=== PATIENT | male | born 1950 | race African-American/Black ===

== ENCOUNTER 2017-12-23 09:47 | Outpatient (CLI) | payer MEDICARE, MEDICAID ==
[2017-12-23 10:42] LABS: #Basophils 0.1 thou/uL (0.0-0.2); #Eosinphils 0.2 thou/uL (0.0-0.7); #Lymphocytes 1.5 thou/uL (1.20-3.40); #Monocytes 0.9 thou/uL (0.11-0.59); #Neutrophils 6.3 thou/uL (1.40-6.50); %Basophils 0.8 % (0.0-1.0); %Eosinophils 1.9 % (0.0-10.0); %Lymphocytes 16.5 % (21.0-51.0); %Monocytes 9.6 % (0.0-10.0); %Neutrophils 71.2 % (42.0-75.0); Hemoglobin 9.2 g/dL (14.0-18.0); Mean Corpuscular HGB CONC 31.1 g/dL (32.0-36.0); Mean Corpuscular Volume 86.9 fL (78.0-98.0); Mean Platelet Volume 6.2 fL (7.4-10.4); Platelet Count 348 thou/uL (130-400); RBC Distribution Width 18.1 % (11.5-14.5); Red Blood Cell (RBC) Count 3.39 mill/uL (4.70-6.10); White Blood Cell (WBC) Count 8.8 thou/uL (4.8-10.8)
[2017-12-23 10:48] LABS: INR-International Normal Ratio 1.1; Prothrombin Time 13.8 SEC (12.0-14.7)
== END 2017-12-23 09:48 | disposition home or self-care (01) ==
LOC: MADLABBHPM 09:47
PROVIDERS: ATTEND Family Medicine
DX: I48.91 Unspecified atrial fibrillation (principal)
CPT/HCPCS: 36415; 85025; 85610

== ENCOUNTER 2018-01-06 09:10 | Outpatient (CLI) | payer MEDICARE, MEDICAID ==
[2018-01-06 10:36] LABS: INR-International Normal Ratio 1.1; Prothrombin Time 14.3 SEC (12.0-14.7)
[2018-01-06 11:13] LABS: #Basophils 0.1 thou/uL (0.0-0.2); #Eosinphils 0.2 thou/uL (0.0-0.7); #Lymphocytes 1.7 thou/uL (1.20-3.40); #Monocytes 0.7 thou/uL (0.11-0.59); #Neutrophils 3.8 thou/uL (1.40-6.50); %Basophils 1.2 % (0.0-1.0); %Eosinophils 3.3 % (0.0-10.0); %Lymphocytes 25.9 % (21.0-51.0); %Monocytes 10.7 % (0.0-10.0); %Neutrophils 58.9 % (42.0-75.0); Hemoglobin 10.7 g/dL (14.0-18.0); Mean Corpuscular Hemoglobin 28.7 pg (27.0-31.0); Mean Corpuscular Volume 89.6 fL (78.0-98.0); Mean Platelet Volume 7.6 fL (7.4-10.4); Nucleated RBC 0 % (0); Platelet Count 251 thou/uL (130-400); RBC Distribution Width 18.4 % (11.5-14.5); Red Blood Cell (RBC) Count 3.73 mill/uL (4.70-6.10); White Blood Cell (WBC) Count 6.5 thou/uL (4.8-10.8)
== END 2018-01-06 09:11 | disposition home or self-care (01) ==
LOC: MADLABBHPM 09:10
PROVIDERS: ATTEND Family Medicine
DX: I48.91 Unspecified atrial fibrillation (principal); Z79.01 Long term (current) use of anticoagulants
CPT/HCPCS: 85025; 85610

== ENCOUNTER 2018-02-14 04:27 | Emergency (ER) | payer MEDICARE, MEDICAID ==
[2018-02-14 04:58] LABS: #Basophils 0.1 thou/uL (0.0-0.2); #Eosinphils 0.2 thou/uL (0.0-0.7); #Lymphocytes 0.9 thou/uL (1.20-3.40); #Neutrophils 5.1 thou/uL (1.40-6.50); %Basophils 1.5 % (0.0-1.0); %Eosinophils 2.4 % (0.0-10.0); %Lymphocytes 12.4 % (21.0-51.0); %Monocytes 13.7 % (0.0-10.0); %Neutrophils 70.1 % (42.0-75.0); Hemoglobin 8.6 g/dL (14.0-18.0); Mean Corpuscular HGB CONC 32.2 g/dL (32.0-36.0); Mean Corpuscular Volume 89.9 fL (78.0-98.0); Mean Platelet Volume 5.5 fL (7.4-10.4); Platelet Count 179 thou/uL (130-400); Red Blood Cell (RBC) Count 2.98 mill/uL (4.70-6.10); White Blood Cell (WBC) Count 7.3 thou/uL (4.8-10.8)
[2018-02-14 05:14] LABS: Anion Gap 20 mmol/L (10-20); BUN (Urea Nitrogen) 57 mg/dL (8.4-25.7); Calc. Creatinine Clearance 0 mL/min (70-130); Calcium 10.1 mg/dL (7.8-10.44); Carbon Dioxide 25 mmol/L (23-31); Chloride 102 mmol/L (98-107); Estimated GFR-MDRD 6; Glucose 99 mg/dL (80-115); Potassium 4.7 mmol/L (3.5-5.1); Sodium 142 mmol/L (136-145)
[2018-02-14 05:18] LABS: CKMB 2.6 ng/mL (0-6.6); Troponin I 0.123 ng/mL (< 0.028)
[2018-02-14] MEDS ORDERED: Furosemide 40 MG/4 ML VIAL ONE (05:39)
--- NOTE | 2018-02-14 09:13 | RAD ---
AP VIEW CHEST: Date: 02/14/18 INDICATION: Dyspnea. COMPARISON: Prior exam dated 02/18/16. FINDINGS: There is stable prominent cardiomegaly. No deion consolidation is evident. Pulmonary vasculature is w ithin normal limits. No pleural effusion or pneumothorax is evident. There is a new endograft stent s een overlying the medial aspect of the left upper hemithorax which may be within the brachiocephalic vein or possibly within one of the great arteries of the neck. No acute osseous abnormality is eviden t. IMPRESSION: Stable prominent cardiomegaly. POS: [facility]
== END 2018-02-14 06:12 | disposition short-term general hospital (02) ==
LOC: MADERS 04:27
DX: I11.0 Hypertensive heart disease with heart failure (principal); I50.9 Heart failure, unspecified; D64.9 Anemia, unspecified; F17.210 Nicotine dependence, cigarettes, uncomplicated; J44.9 Chronic obstructive pulmonary disease, unspecified; Z79.01 Long term (current) use of anticoagulants; Z79.899 Other long term (current) drug therapy; Z79.891 Long term (current) use of opiate analgesic
CPT/HCPCS: 36415; 71045; 80048; 80307; 82140; 82553; 83605; 83880; 84484; 85025; 93005; 94640; 96374; J1940